=== PATIENT | male | born 1955 | race Asian ===

== ENCOUNTER 2023-11-24 08:20 | Day surgery (SDC) | payer OTHER ==
[~2023-11-24] VITALS: Ht 157.5 cm; Wt 54.4 kg
[2023-11-24] MEDS ORDERED: fentaNYL citrate 0.05 MG/ML VIAL ONE (09:35)
[2023-11-24] MEDS: fentaNYL citrate 0.05 MG/ML VIAL IVP ONE (09:42)
[2023-11-24] MEDS: LIDOCAINE 2% 100 MG/5 ML UJET TP ONE (09:49)
== END 2023-11-24 10:40 | disposition home or self-care (01) ==
LOC: MDS 08:20 → MMU 08:21 → MDS 10:40
PROVIDERS: ATTEND Internal Medicine Gastroenterology
DX: Z12.11 Encounter for screening for malignant neoplasm of colon (principal); B18.1 Chronic viral hepatitis B without delta-agent; I10 Essential (primary) hypertension; E78.00 Pure hypercholesterolemia, unspecified; Z79.899 Other long term (current) drug therapy
CPT/HCPCS: 45378; J3010